=== PATIENT | male | born 1940 | race African-American/Black ===

== ENCOUNTER 2019-07-28 15:19 | Emergency (ER) | payer OTHER ==
[~2019-07-28] VITALS: Ht 182.9 cm; Wt 102.1 kg
[~2019-07-28 15:19] MED LIST: GABAPENTIN600 MG; GLUCOPHAGE XR500 MG PO; GLUCOTROL10 MG PO; LISINOPRIL20 MG; NOVOLOG100 U/ML SQ; SIMVASTATIN10 MG; TAMS0.4C
[2019-07-28] MEDS ORDERED: PRE PROTEIN1 EACH (15:41)
[2019-07-28] MEDS ORDERED: JANUMET 50-1,01 EACH (15:43)
[2019-07-28] MEDS ORDERED: LANTUS SOL100 UNIT/1 (15:44)
== END 2019-07-28 18:48 | disposition home or self-care (01) ==
LOC: ER 15:19 → CPU-OBS 16:25 → ER 16:25
DX: K21.9 Gastro-esophageal reflux disease without esophagitis (principal); R10.13 Epigastric pain; R07.89 Other chest pain

== ENCOUNTER 2019-09-10 12:21 | Emergency (ER) | payer OTHER ==
[~2019-09-10] VITALS: Ht 185.4 cm; Wt 102.1 kg
[~2019-09-10 12:21] MED LIST changes: +JANUMET 50-1,01 EACH; +LANTUS SOL100 UNIT/1; +PRE PROTEIN1 EACH
[2019-09-10] MEDS ORDERED: NEURON (12:37)
[2019-09-10] MEDS ORDERED: TAMS0.4C (12:37)
[2019-09-10] MEDS ORDERED: ZOCOR20 MG (12:38)
[2019-09-10] MEDS ORDERED: PROTONIX40 MG (12:39)
[2019-09-10] MEDS ORDERED: ZESTRIL20 MG (12:39)
== END 2019-09-10 20:16 | disposition home or self-care (01) ==
LOC: ER 12:21
DX: R07.89 Other chest pain (principal); Z03.818 Encounter for observation for suspected exposure to other biological agents ruled out; R06.02 Shortness of breath; R42 Dizziness and giddiness

== ENCOUNTER 2019-09-18 07:40 | Outpatient (CLI) | payer OTHER ==
[~2019-09-18 07:40] MED LIST changes: +NEURON; +PROTONIX40 MG; +ZESTRIL20 MG; +ZOCOR20 MG
== END 2019-09-18 07:47 | disposition home or self-care (01) ==
LOC: RX STUDY 07:40
PROVIDERS: ATTEND Internal Medicine
DX: R10.13 Epigastric pain (principal); K44.9 Diaphragmatic hernia without obstruction or gangrene

== ENCOUNTER 2019-10-07 10:15 | Outpatient (CLI) | payer OTHER | END 2019-10-07 10:38 | disposition home or self-care (01) | LOC: RAD 10:15 → TOM 10:15 → RAD 10:38 | PROVIDERS: ATTEND Internal Medicine | DX: M54.5 Low back pain (principal); R10.11 Right upper quadrant pain; R12 Heartburn; R10.32 Left lower quadrant pain; K44.9 Diaphragmatic hernia without obstruction or gangrene; R07.89 Other chest pain ==

== ENCOUNTER 2019-11-08 14:15 | Emergency (ER) | payer OTHER ==
[~2019-11-08] VITALS: Ht 185.4 cm; Wt 97.5 kg
== END 2019-11-08 18:28 | disposition home or self-care (01) ==
LOC: ER 14:15
DX: S93.492A Sprain of other ligament of left ankle, initial encounter (principal); X50.0XXA Overexertion from strenuous movement or load, initial encounter; Y93.89 Activity, other specified; Y92.512 Supermarket, store or market as the place of occurrence of the external cause; Y99.8 Other external cause status

== ENCOUNTER 2019-12-03 11:01 | Outpatient (CLI) | payer OTHER | END 2019-12-03 11:06 | disposition home or self-care (01) | LOC: SONOGRAMA 11:01 | PROVIDERS: ATTEND Physical Medicine & Rehabilitation | DX: S96.912A Strain of unspecified muscle and tendon at ankle and foot level, left foot, initial encounter (principal) ==

== ENCOUNTER 2020-01-01 15:44 | Outpatient (CLI) | payer OTHER | END 2020-01-01 16:00 | disposition home or self-care (01) | LOC: OFIC 805 15:44 | PROVIDERS: ATTEND Otolaryngology | DX: L29.8 Other pruritus (principal); K21.9 Gastro-esophageal reflux disease without esophagitis; R13.19 Other dysphagia; H61.23 Impacted cerumen, bilateral ==

== ENCOUNTER 2025-02-05 08:59 | Outpatient (CLI) | payer OTHER | END 2025-02-05 09:00 | disposition home or self-care (01) | LOC: NUCLEAR 08:59 | PROVIDERS: ATTEND Psychiatry & Neurology Clinical Neurophysiology | DX: G30.1 Alzheimer's disease with late onset (principal) | CPT/HCPCS: 78803; A9557 ==